=== PATIENT | female | born 2000 | race Caucasian/White ===

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

== ENCOUNTER 2019-05-08 | Emergency (ER) | payer MEDICAID ==
[~2019-05-08] MED LIST changes: +AMOXICILLIN875 MG PO; +BUSPIRONE5 MG PO; +FLUOXETINE20 MG PO
[2019-05-08] MEDS ORDERED: TESSALON PER100 MG PO (21:08)
[2019-05-08] MEDS ORDERED: VENTOLIN HFA IN (21:08)
[2019-05-08] MEDS ORDERED: ZITHROMAX500 MG PO (21:08)
== END 2019-05-08 21:15 | disposition home or self-care (01) ==
DX: J06.9 Acute upper respiratory infection, unspecified (principal); E11.9 Type 2 diabetes mellitus without complications

== ENCOUNTER 2021-01-06 23:37 | Emergency (ER) | payer MEDICAID ==
[~2021-01-06] VITALS: Ht 180.3 cm; Wt 139.0 kg
[~2021-01-06 23:37] MED LIST changes: +TESSALON PER100 MG PO; +VENTOLIN HFA IN; +ZITHROMAX500 MG PO
[2021-01-07] MEDS ORDERED: PREDNISONE50 MG PO (01:18)
[2021-01-07 01:30] VITALS: BP 137/82
== END 2021-01-07 01:40 | disposition home or self-care (01) ==
LOC: ED 23:37
DX: T78.40XA Allergy, unspecified, initial encounter (principal); E11.9 Type 2 diabetes mellitus without complications; J45.909 Unspecified asthma, uncomplicated; F32.9 Major depressive disorder, single episode, unspecified; F41.9 Anxiety disorder, unspecified; X58.XXXA Exposure to other specified factors, initial encounter

== ENCOUNTER 2021-03-04 15:00 | Emergency (ER) | payer MEDICAID ==
[~2021-03-04] VITALS: Ht 180.3 cm; Wt 140.9 kg
[~2021-03-04 15:00] MED LIST changes: +PREDNISONE50 MG PO
[2021-03-04 17:15] LABS: URINE BILIRUBIN - DIPSTICK NEGATIVE (NEGATIVE); URINE BLOOD DIPSTICK NEGATIVE (NEGATIVE); URINE COLOR YELLOW; URINE GLUCOSE - DIPSTICK NEGATIVE (NEGATIVE); URINE KETONE TRACE mg/dL (NEGATIVE); URINE LEUK ESTERASE NEGATIVE (NEGATIVE); URINE PROTEIN - DIPSTICK TRACE mg/dL (NEG-TRACE); URINE SPECIFIC GRAVITY >=1.030; URINE UROBILINOGEN - DIPSTICK 0.2 E.U./dL (0.2)
[2021-03-04 17:19] LABS: URINE NITRITE - DIPSTICK NEGATIVE (Negative)
[2021-03-04 17:23] LABS: HEMOGLOBIN 11.4 g/dl (12.0-16.0); IMMATURE GRANULOCYTES 0.1 % (0.0-5.0); MEAN CORPUSCULAR HGB 19.9 pG CALC (26.0-32.0); NEUT# 6.48 thou/uL (2.00-7.15); RED BLOOD COUNT 5.74 mill/uL (4.20-5.60); RED CELL DISTRI WIDTH 19.4 % (11.5-15.5)
[2021-03-04 17:25] LABS: MEAN CELL VOLUME 66.2 fL CALC (80.0-100.0)
[2021-03-04 17:43] LABS: ALKALINE PHOSPHATASE 119 u/l (38-126); ANION GAP 13 (6-22 (CALC)); BUN 12 mg/dL (7-17); BUN/CREATININE RATIO 19 (12-20 (CALC)); CARBON DIOXIDE 25 mmol/l (22-30); CHLORIDE 107 mmol/l (95-108); CREATININE 0.6 mg/dL (0.5-1.0); GFR > 60 ML/MIN (>=60 (CALC)); GFR FOR AFR.AMER. > 60 ML/MIN (>=60 (CALC)); POTASSIUM 3.9 mmol/l (3.5-5.1); SGOT/AST 23 u/l (14-36); SODIUM 141 mmol/l (137-146); TOTAL PROTEIN 7.6 g/dL (6.3-8.2)
[2021-03-04 18:01] LABS: BILIRUBIN, TOTAL 0.7 mg/dL (0.0-1.4)
[2021-03-04] MEDS ORDERED: MEDDOSEPAK PO (18:07)
[2021-03-04] MEDS ORDERED: ZPAK PO (18:07)
[2021-03-04 18:36] VITALS: BP 122/75
== END 2021-03-04 18:30 | disposition home or self-care (01) ==
LOC: ED 15:00
PROVIDERS: Emergency Medicine
DX: J45.901 Unspecified asthma with (acute) exacerbation (principal); Z20.822 Contact with and (suspected) exposure to COVID-19

== ENCOUNTER 2021-06-03 13:39 | Emergency (ER) | payer SELFPAY ==
[~2021-06-03] VITALS: Ht 177.8 cm; Wt 142.8 kg
[~2021-06-03 13:39] MED LIST changes: +MEDDOSEPAK PO; +ZPAK PO
[2021-06-03] MEDS ORDERED: PROAIR HFA108 MCG/AC PO (16:42)
[2021-06-03] MEDS ORDERED: AMOX/K CLAV875 M1 PO (16:42)
[2021-06-03] MEDS ORDERED: ZPAK PO (16:42)
[2021-06-03] MEDS ORDERED: DECADRON6 MG PO (16:42)
[2021-06-03 16:54] VITALS: BP 164/82
== END 2021-06-03 16:59 | disposition home or self-care (01) | DRG 177 ==
LOC: ED 13:39
DX: U07.1 COVID-19 (principal); J12.82 Pneumonia due to coronavirus disease 2019; J45.901 Unspecified asthma with (acute) exacerbation; E11.9 Type 2 diabetes mellitus without complications; F32.A Depression, unspecified; F41.9 Anxiety disorder, unspecified